=== PATIENT | female | born 1985 | race Caucasian/White ===

== ENCOUNTER 2017-07-18 13:10 | Emergency (ER) | payer MEDICAID ==
--- NOTE | 2017-07-18 13:50 | EDM.PDOC ---
Scribed by Lois Choudhary 07/18/17 [id number] for Shen Hall MD ED HPI GENERAL MEDICAL PROBLEM - General Chief Complaint: Respiratory Problem Stated Complaint: SICK, EXPOSES TO INFLU A Time Seen by Provider: 07/18/17 13:32 Source of Information: Reports: Patient, RN, RN Notes Reviewed History Limitations: Reports: No Limitations - History of Present Illness INITIAL COMMENTS - FREE TEXT/NARRATIVE: Pt with onset of fever, chills, gen. body aches, headache, mild dry cough, and clear runny nose. Pt's daughter just tested positive for Influenza A and has the same symptoms. Onset: Sudden Onset Date: 07/17/17 Duration: Constant Location: Reports: Generalized Quality: Reports: Ache Severity: Moderate Improves with: Reports: None Worsens with: Reports: None Context: Reports: Sick Contact Associated Symptoms: Reports: No Other Symptoms Treatments [employer] PILOT: Reports: Acetaminophen Head Pain Score (Numeric/FACES): 4 - Related Data Allergies Allergy/AdvReac Type Severity Reaction Status Date / Time sulfamethoxazole Allergy Rash Verified 07/18/17 13:24 [From Bactrim] trimethoprim [From Bactrim] Allergy Rash Verified 07/18/17 13:24 Home Meds: Home Meds . 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 Musculoskeletal History: Reports: None Neurological History: Reports: None Psychiatric History: Reports: None, PTSD Endocrine/Metabolic History: Reports: None Hematologic History: Reports: None Immunologic History: Reports: None Oncologic (Cancer) History: Reports: None Dermatologic History: Reports: None - Infectious Disease History Infectious Disease History: Reports: Chicken Pox - Past Surgical History Head Surgeries/Procedures: Reports: None Other Musculoskeletal Surgeries/Procedures:: rotater cuff Social & Family History - Family History Family Medical History: Noncontributory - Tobacco Use Smoking Status *Q: Current Every Day Smoker Years of Tobacco use: 5 Packs/Tins Daily: 0.5 Second Hand Smoke Exposure: No - Caffeine Use Caffeine Use: Reports: Soda - Recreational Drug Use Recreational Drug Use: No - Living Situation & Occupation Living situation: Reports: with Family Occupation: Employed ED ROS GENERAL - Review of Systems Review Of Systems: ROS reveals no pertinent complaints other than HPI. ED EXAM, GENERAL - Physical Exam Exam: See Below Exam Limited By: No Limitations General Appearance: Alert, WD/WN, No Apparent Distress Eye Exam: Bilateral Eye: Normal Inspection Ears: Normal External Exam, Normal Canal, Hearing Grossly Normal, Normal TMs Nose: No Blood, Nasal Drainage (mild clear) Throat/Mouth: Normal Inspection, Normal Lips, Normal Teeth, Normal Gums, Normal Oropharynx, Normal Voice, No Airway Compromise Head: Atraumatic, Normocephalic Neck: Normal Inspection, Supple, Non-Tender, Full Range of Motion. No: Lymphadenopathy (L), Lymphadenopathy (R) Respiratory/Chest: No Respiratory Distress, Lungs Clear, Normal Breath Sounds, No Accessory Muscle Use, Chest Non-Tender, Other (occ. dry cough) Cardiovascular: Regular Rate, Rhythm GI/Abdominal: Normal Bowel Sounds, Soft, Non-Tender Extremities: Normal Inspection Neurological: Alert, Oriented, Normal Gait, No Motor/Sensory Deficits Psychiatric: Normal Mood Skin Exam: Warm, Dry, Intact, Normal Color, No Rash Course - Vital Signs Last Recorded V/S: Last Vital Signs Temp 37.2 C 07/18/17 13:18 Pulse 95 07/18/17 13:18 Resp 16 07/18/17 13:18 BP 106/50 L 07/18/17 13:18 Pulse Ox 99 07/18/17 13:18 Departure - Departure Time of Disposition: 13:35 Disposition: Home, Self-Care 01 Condition: Good Clinical Impression: Influenza - Discharge Information Instructions: Influenza, Adult, [id number] Forms: ED Department Discharge Additional Instructions: RX: Tamiflu 75mg. Drink plenty of fluids. Tylenol and Ibuprofen as needed for fevers. I have read and agree with the documentation that has been completed regarding this visit. By signing this record, I attest that the documentation was completed in my physical presence and is an accurate record of the encounter.
== END 2017-07-18 13:53 | disposition home or self-care (01) ==
LOC: DL.ED 13:10
DX: J11.1 Influenza due to unidentified influenza virus with other respiratory manifestations (principal); F17.210 Nicotine dependence, cigarettes, uncomplicated; Z88.2 Allergy status to sulfonamides; Z88.1 Allergy status to other antibiotic agents
CPT/HCPCS: 99283

== ENCOUNTER 2017-08-19 17:08 | Emergency (ER) | payer MEDICAID | END 2017-08-19 17:56 | disposition left against medical advice (07) | LOC: DL.ED 17:08 | DX: Z53.21 Procedure and treatment not carried out due to patient leaving prior to being seen by health care provider (principal) ==

== ENCOUNTER 2018-09-24 09:21 | Emergency (ER) | payer MEDICAID ==
--- NOTE | 2018-09-24 10:53 | EDM.PDOC ---
Scribed by Lois Choudhary 09/24/18 [id number] for Stefany Araya NP ED HPI GENERAL MEDICAL PROBLEM - General Chief Complaint: ENT Problem Stated Complaint: SWOLLEN NECK [id number] Time Seen by Provider: 09/24/18 10:15 Source of Information: Reports: Patient, RN, RN Notes Reviewed History Limitations: Reports: No Limitations - History of Present Illness INITIAL COMMENTS - FREE TEXT/NARRATIVE: Patient presents to ER with complaint of swollen lymph node on left side of neck. 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 She states she fells that two are related. Denies sore throat, dental pain, nausea, vomiting or diarrhea. She admits to constant low grade fever--not new for her. 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 Rates her joiont pain 09/19. Onset: Gradual Duration: Constant Location: Reports: Other (lymph node) Quality: Reports: Ache Severity: Mild Improves with: Reports: None Worsens with: Reports: None Associated Symptoms: Reports: No Other Symptoms Generalized Pain Score (Numeric/FACES): 6 - Related Data Allergies Allergy/AdvReac Type Severity Reaction Status Date / Time sulfamethoxazole Allergy Rash Verified 09/24/18 09:36 [From Bactrim] trimethoprim [From Bactrim] Allergy Rash Verified 09/24/18 09:36 Home Meds: Home Meds Hydroxychloroquine [Plaquenil] 200 mg PO DAILY 09/24/18 [History] Past Medical History HEENT History: Reports: None Cardiovascular History: Reports: None Respiratory History: Reports: None Gastrointestinal History: Reports: None Genitourinary History: Reports: None 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 Musculoskeletal History: Reports: None Neurological History: Reports: None Psychiatric History: Reports: None, PTSD Endocrine/Metabolic History: Reports: None Hematologic History: Reports: None Other Hematologic History: lupus Immunologic History: Reports: None Oncologic (Cancer) History: Reports: None Dermatologic History: Reports: None - Infectious Disease History Infectious Disease History: Reports: Chicken Pox - Past Surgical History Head Surgeries/Procedures: Reports: None Other Musculoskeletal Surgeries/Procedures:: rotater cuff Social & Family History - Family History Family Medical History: Noncontributory - Tobacco Use Smoking Status *Q: Current Every Day Smoker Years of Tobacco use: 3 Packs/Tins Daily: 0.5 Second Hand Smoke Exposure: No - Caffeine Use Caffeine Use: Reports: Soda - Recreational Drug Use Recreational Drug Use: No - Living Situation & Occupation Living situation: Reports: with Family Occupation: Employed ED ROS ENT - Review of Systems Review Of Systems: ROS reveals no pertinent complaints other than HPI. ED EXAM, ENT - Physical Exam Exam: See Below Exam Limited By: No Limitations General Appearance: Alert, WD/WN, No Apparent Distress Eye Exam: Bilateral Eye: EOMI, Normal Inspection, PERRL Ears: Normal External Exam, Normal Canal, Hearing Grossly Normal, Normal TMs Nose: Normal Inspection, Normal Mucousa, No Blood Mouth/Throat: Normal Inspection, Normal Gums, Normal Lips, Normal Oropharynx, Normal Teeth Head: Atraumatic, Normocephalic Neck: Other (+3 left anterior cervical) Respiratory/Chest: No Respiratory Distress, Lungs Clear, Normal Breath Sounds, No Accessory Muscle Use, Chest Non-Tender Cardiovascular: Normal Peripheral Pulses, Regular Rate, Rhythm, No Edema, No Gallop, No JVD, No Murmur, No Rub GI/Abdominal: Normal Bowel Sounds, Soft, Non-Tender, No Organomegaly, No Distention, No Abnormal Bruit, No Mass (Female) Exam: Deferred Rectal (Female) Exam: Deferred Back: Normal Inspection, Full Range of Motion Extremities: Normal Inspection, Normal Range of Motion, Non-Tender, No Pedal Edema, Normal Capillary Refill Neurological: Alert, Oriented, CN II-XII Intact, Normal Cognition, Normal Gait, Normal Reflexes, No Motor/Sensory Deficits Psychiatric: Normal Affect, Normal Mood Skin: Other (very sensitivie to sunlight, etc. Discoid lupus. ) Lymphatic: Other (left anterior cervical +3.) Course - Vital Signs Last Recorded V/S: Last Vital Signs Temp 98.2 F 09/24/18 09:29 Pulse 89 09/24/18 09:29 Resp 16 09/24/18 09:29 BP 117/71 09/24/18 09:29 Pulse Ox 100 09/24/18 09:29 Departure - Departure Time of Disposition: 10:23 Disposition: Home, Self-Care 01 Condition: Fair Clinical Impression: Lymphadenopathy of left cervical region, Discoid lupus - Discharge Information *PRESCRIPTION DRUG MONITORING PROGRAM REVIEWED*: No *COPY OF PRESCRIPTION DRUG MONITORING REPORT IN PATIENT GAMA: No Instructions: Lymphadenopathy Forms: ED Department Discharge Additional Instructions: Continue to take ibuprofen as directed RX: Amoxicillin Follow up with your primary care facility if no improvement I have read and agree with the documentation that has been completed regarding this visit. By signing this record, I attest that the documentation was completed in my physical presence and is an accurate record of the encounter.
== END 2018-09-24 10:27 | disposition home or self-care (01) ==
LOC: DL.ED 09:21
DX: R59.0 Localized enlarged lymph nodes (principal); L93.0 Discoid lupus erythematosus; Z88.2 Allergy status to sulfonamides; Z79.899 Other long term (current) drug therapy
CPT/HCPCS: 99283

== ENCOUNTER 2018-12-02 20:15 | Emergency (ER) | payer MEDICAID ==
[2018-12-02] MEDS ORDERED: Gentamicin 0.3% Ophth Soln 5 ML Bottle EYELF ONE (20:16)
[2018-12-02] MEDS ORDERED: Gentamicin 0.3% Ophth Soln 5 ML Bottle ONE (20:31)
--- NOTE | 2018-12-02 20:33 | EDM.PDOC ---
ED HPI GENERAL MEDICAL PROBLEM - General Chief Complaint: Eye Problems Stated Complaint: SOMETHING WRONG WITH EYE Time Seen by Provider: 12/02/18 20:23 Source of Information: Reports: Patient History Limitations: Reports: No Limitations - History of Present Illness INITIAL COMMENTS - FREE TEXT/NARRATIVE: states left eye turned red last night and got concerned since taking plaquenil for discoid lupus and needs regular eye exam. thought this is it. denies blurred vision. denies itch/discharge. 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 Musculoskeletal History: Reports: None Neurological History: Reports: None Psychiatric History: Reports: None, PTSD Endocrine/Metabolic History: Reports: None Hematologic History: Reports: None Other Hematologic History: lupus Immunologic History: Reports: None Oncologic (Cancer) History: Reports: None Dermatologic History: Reports: None - Infectious Disease History Infectious Disease History: Reports: Chicken Pox - Past Surgical History Head Surgeries/Procedures: Reports: None Other Musculoskeletal Surgeries/Procedures:: rotater cuff Social & Family History - Family History Family Medical History: Noncontributory - Caffeine Use Caffeine Use: Reports: Soda - Living Situation & Occupation Living situation: Reports: with Family Occupation: Employed ED ROS GENERAL - Review of Systems Review Of Systems: ROS reveals no pertinent complaints other than HPI. ED EXAM GENERAL W FULL EYE - Physical Exam Exam: See Below Exam Limited By: No Limitations General Appearance: Alert, WD/WN, No Apparent Distress, Anxious Eye Exam: Left Eye: Conjunctival Injection (medial [place], no discharge), Bilateral Eye: PERRL (pupils ER @ 4mm) Eyelids: Bilateral: Normal Appearance Conjunctiva & Sclera: Left: Injected (medial [place]) Cornea Exam: Bilateral: Normal Appearance Extraocular Movements: Bilateral: Intact Pupillary Size: Bilateral: 4 mm Anterior Chamber: Bilateral: Normal Appearance Ears: Hearing Grossly Normal Throat/Mouth: Normal Voice, No Airway Compromise Head: Atraumatic Neck: Non-Tender, Full Range of Motion Respiratory/Chest: No Respiratory Distress Cardiovascular: Regular Rate, Rhythm GI/Abdominal: Soft, Non-Tender Neurological: Alert, Oriented, Normal Cognition, Normal Gait, No Motor/Sensory Deficits Psychiatric: Anxious Skin Exam: Warm, Dry, Normal Color Lymphatic: No Adenopathy Course - Vital Signs Last Recorded V/S: Last Vital Signs Temp 37.5 C 12/02/18 20:24 Pulse 105 H 12/02/18 20:24 Resp 18 12/02/18 20:24 BP 122/54 L 12/02/18 20:24 Pulse Ox 100 12/02/18 20:24 Departure - Departure Time of Disposition: 20:33 Disposition: Home, Self-Care 01 Condition: Good Clinical Impression: Conjunctivitis Qualifiers: Conjunctivitis type: acute Acute conjunctivitis type: unspecified Laterality: left Qualified Code(s): H10.32 - Unspecified acute conjunctivitis, left eye - Discharge Information Additional Instructions: 1) see EYE DOCTOR WEDNESDAY if still has problem 2) return if there is any change or concern rx togo; gentamycin eye drops 2 drops qid x 5 days
== END 2018-12-02 20:42 | disposition home or self-care (01) ==
LOC: DL.ED 20:15
DX: H10.32 Unspecified acute conjunctivitis, left eye (principal); Z88.1 Allergy status to other antibiotic agents
CPT/HCPCS: 99282; A9270-GY

== ENCOUNTER 2019-03-12 11:50 | Emergency (ER) | payer MEDICAID ==
[2019-03-12] MEDS ORDERED: Sodium Chloride 0.9% 1,000 ML IV ONE ×2 (12:12→13:19)
[2019-03-12] MEDS ORDERED: Ondansetron 4 MG/2 ML SDV IV ONE (12:12)
[2019-03-12 12:37] LABS: ANION GAP 12.1; CHLORIDE,CL 107 mmol/L (101-111); SODIUM,NA 136 mmol/L (135-145)
--- NOTE | 2019-03-12 14:02 | EDM.PDOC ---
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 She is nauseated and has been vomiting with a small amount of blood. She has taken no Reglan or Phenergan. Last meal she kept down which was yesterday A.M. Her last Zofran yesterday afternoon. She has had no diarrhea. She was suppose to fill Zofran script on Wednesday, but missed pharmacy hours. Onset: Gradual Duration: Constant Location: Reports: Abdomen Quality: Reports: Ache Severity: Moderate Improves with: Reports: None Worsens with: Reports: None Associated Symptoms: Reports: No Other Symptoms Throat Pain Score (Numeric/FACES): 4 - Related Data Allergies Allergy/AdvReac Type Severity Reaction Status Date / Time sulfamethoxazole Allergy Rash Verified 03/12/19 12:04 [From Bactrim] trimethoprim [From Bactrim] Allergy Rash Verified 03/12/19 12:04 Home Meds: Home Meds Hydroxychloroquine [Plaquenil] 200 mg PO BID 09/24/18 [History] Mv-Mn/Iron/FA/Herbal/Digestive [ One Tablet] 1 tab PO DAILY 03/12/19 [ History] Ondansetron [Zofran ODT] 4 mg PO Q6HR 03/12/19 [History] Past Medical History HEENT History: Reports: None Cardiovascular History: Reports: None Respiratory History: Reports: None Gastrointestinal History: Reports: None Genitourinary History: Reports: None 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: Reports: Musculoskeletal History: Reports: None Neurological History: Reports: None Psychiatric History: Reports: Anxiety, Depression, PTSD Endocrine/Metabolic History: Reports: None Hematologic History: Reports: Other (See Below) Other Hematologic History: lupus Immunologic History: Reports: None Oncologic (Cancer) History: Reports: None Dermatologic History: Reports: None - Infectious Disease History Infectious Disease History: Reports: Chicken Pox - Past Surgical History Head Surgeries/Procedures: Reports: None HEENT Surgical History: Reports: Adenoidectomy, Tonsillectomy Other Musculoskeletal Surgeries/Procedures:: rotater cuff Social & Family History - Family History Family Medical History: Noncontributory - Tobacco Use Smoking Status *Q: Current Every Day Smoker Years of Tobacco use: 5 Packs/Tins Daily: 0.2 Used Tobacco, but Quit: No - Caffeine Use Caffeine Use: Reports: Soda - Recreational Drug Use Recreational Drug Use: No - Living Situation & Occupation Living situation: Reports: with Family Occupation: Employed ED ROS GENERAL - Review of Systems Review Of Systems: Comprehensive ROS is negative, except as noted in HPI. ED EXAM, GI/ABD - Physical Exam Exam: See Below Exam Limited By: No Limitations General Appearance: Alert, WD/WN, No Apparent Distress Eyes: Bilateral: Normal Appearance Ears: Normal External Exam, Normal Canal, Hearing Grossly Normal, Normal TMs Nose: Normal Inspection, Normal Mucosa, No Blood Throat/Mouth: Normal Inspection, Normal Lips, Normal Teeth, Normal Gums, Normal Oropharynx, Normal Voice, No Airway Compromise Head: Atraumatic, Normocephalic Neck: Normal Inspection, Supple, Non-Tender, Full Range of Motion Respiratory/Chest: No Respiratory Distress, Lungs Clear, Normal Breath Sounds, No Accessory Muscle Use, Chest Non-Tender Cardiovascular: Normal Peripheral Pulses, Regular Rate, Rhythm, No Edema, No Gallop, No JVD, No Murmur, No Rub GI/Abdominal Exam: Other (diffuse tenderness(relateds tovomiting).) (Female) Exam: Deferred Rectal (Female) Exam: Deferred Back Exam: Normal Inspection, Full Range of Motion, NT Extremities: Normal Inspection, Normal Range of Motion, Non-Tender, Normal Capillary Refill, No Pedal Edema Neurological: Alert, Oriented, CN II-XII Intact, Normal Cognition, Normal Gait, Normal Reflexes, No Motor/Sensory Deficits Psychiatric: Normal Affect, Normal Mood Skin Exam: Warm, Dry, Intact, Normal Color, No Rash Lymphatic: No Adenopathy Course - Vital Signs Last Recorded V/S: Last Vital Signs Temp 37.2 C 03/12/19 11:55 Pulse 94 03/12/19 11:55 Resp 16 03/12/19 11:55 BP 118/64 03/12/19 11:55 Pulse Ox 100 03/12/19 11:55 - Orders/Labs/Meds Orders: Active Orders 24 hr Category Date Time Status Sodium Chloride 0.9% [Normal Saline] 1,000 ml Med 03/12/19 13:19 Active IV .BOLUS Medication Orders Sodium Chloride (Normal Saline) 1,000 mls @ 999 mls/hr IV .BOLUS ONE Stop: 03/12/19 14:19 Last Admin: 03/12/19 13:22 Dose: 999 mls/hr Labs: Laboratory Tests 03/12/19 03/12/19 Range/Units 12:00 12:00 WBC 9.5 (5.0-10.0) 10^3/uL RBC 3.86 L (4.2-5.4) 10^6/uL Hgb 12.1 (12.0-16.0) g/dL Hct 34.6 L (37.0-47.0) % MCV 89.6 (80-100) fL MCH 31.3 (27.0-34.0) pg MCHC 35.0 (33.0-35.0) g/dL Plt Count 187 (150-450) 10^3/uL Neut % (Auto) 73.3 (42.2-75.2) % Lymph % (Auto) 16.4 L (20.5-50.1) % [place] % (Auto) 8.9 H (2-8) % Eos % (Auto) 1.2 (1.0-3.0) % Baso % (Auto) 0.2 (0.0-1.0) % Sodium 136 (135-145) mmol/L Potassium 3.1 L (3.6-5.0) mmol/L Chloride 107 (101-111) mmol/L Carbon Dioxide 20.0 L (21.0-31.0) mmol/L Anion Gap 12.1 BUN 11 (7-18) mg/dL Creatinine 0.4 L (0.6-1.3) mg/dL Est Cr Clr Drug Dosing 174.36 mL/min Estimated GFR (MDRD) > 60 BUN/Creatinine Ratio 27.50 Glucose 88 (74-105) mg/dL Calcium 8.8 (8.4-10.2) mg/dl Total Bilirubin 0.3 (0.2-1.0) mg/dL AST 15 (10-42) IU/L ALT 9 L (10-60) IU/L Alkaline Phosphatase 35 L (42-121) IU/L Total Protein 6.6 L (6.7-8.2) g/dl Albumin 3.3 (3.2-5.5) g/dl Globulin 3.3 Albumin/Globulin Ratio 1.00 Meds: Medications Generic Name Dose Route Start Last Admin Trade Name Freq PRN Reason Stop Dose Admin Sodium Chloride 1,000 mls @ 999 mls/hr 03/12/19 13:19 03/12/19 13:22 Normal Saline IV 03/12/19 14:19 999 mls/hr .BOLUS ONE Administration Discontinued Medications Generic Name Dose Route Start Last Admin Trade Name Freq PRN Reason Stop Dose Admin Sodium Chloride 1,000 mls @ 999 mls/hr 03/12/19 12:12 03/12/19 12:26 Normal Saline IV 03/12/19 13:12 999 mls/hr .BOLUS ONE Administration Ondansetron HCl 4 mg 03/12/19 12:12 03/12/19 12:26 Zofran IV 03/12/19 12:13 4 mg ONETIME ONE Administration Departure - Departure Time of Disposition: 13:58 Disposition: Home, Self-Care 01 Condition: Fair Clinical Impression: Nausea and vomiting during prior to 22 weeks gestation - Discharge Information *PRESCRIPTION DRUG MONITORING PROGRAM REVIEWED*: Not Applicable *COPY OF PRESCRIPTION DRUG MONITORING REPORT IN PATIENT GAMA: Not Applicable Instructions: Nausea and Vomiting, Adult, [id number] Forms: ED Department Discharge Care Plan Goals: The patient was advised of the examination results. The patient was given 2 liters of IV fluids and a dose of IV Zofran. The patient was discharged with a script for Zofran (4 mg) #10 to take 1 by mouth every 6 hours as needed for nausea. If the patient has any additional symptoms or concerns, the patient should either return to the emergency department or visit her primary care facility. - My Orders Last 24 Hours: My Active Orders 03/12/19 13:19 Sodium Chloride 0.9% [Normal Saline] 1,000 ml IV .BOLUS - Assessment/Plan Last 24 Hours: My Active Orders 03/12/19 13:19 Sodium Chloride 0.9% [Normal Saline] 1,000 ml IV .BOLUS I have read and agree with the documentation that has been completed regarding this visit. By signing this record, I attest that the documentation was completed in my physical presence and is an accurate record of the encounter.
== END 2019-03-12 14:09 | disposition home or self-care (01) ==
LOC: DL.ED 11:50
DX: O21.2 Late vomiting of pregnancy (principal); O99.332 Smoking (tobacco) complicating pregnancy, second trimester; F17.210 Nicotine dependence, cigarettes, uncomplicated; Z3A.22 22 weeks gestation of pregnancy; Z88.2 Allergy status to sulfonamides
CPT/HCPCS: 36415; 80053; 85025; 96361; 96374; 99283; J2405; J7030

== ENCOUNTER 2019-03-23 00:42 | Emergency (ER) | payer MEDICAID ==
--- NOTE | 2019-03-23 01:36 | EDM.PDOC ---
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 Patient states EDC is 08/12/19. Patient states this is her seventh , she has 2 living children, and has had 4 spontaneous abortions. 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 She states this evening when she was at work about 11:00, she felt a large gush. She states this was bright red/pink fluid. Since that time, the patient has had 2 very small drops of pink fluid on a pad. Patient admits to having intercourse this afternoon. States she is still feeling movement. Patient denies any pain at this time. Patient also denies any sexually transmitted diseases, urinary symptoms. Onset: Today, Sudden - Related Data Allergies Allergy/AdvReac Type Severity Reaction Status Date / Time sulfamethoxazole Allergy Rash Verified 03/23/19 01:09 [From Bactrim] trimethoprim [From Bactrim] Allergy Rash Verified 03/23/19 01:09 Home Meds: Home Meds Hydroxychloroquine [Plaquenil] 200 mg PO BID 09/24/18 [History] Mv-Mn/Iron/FA/Herbal/Digestive [ One Tablet] 1 tab PO DAILY 03/12/19 [ History] Ondansetron [Zofran ODT] 4 mg PO Q6HR 03/12/19 [History] Past Medical History HEENT History: Reports: None Cardiovascular History: Reports: None Respiratory History: Reports: None Gastrointestinal History: Reports: None Genitourinary History: Reports: None 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 History: Reports: Musculoskeletal History: Reports: None Neurological History: Reports: None Psychiatric History: Reports: Anxiety, Depression, PTSD Endocrine/Metabolic History: Reports: None Hematologic History: Reports: Other (See Below) Other Hematologic History: lupus Immunologic History: Reports: None Oncologic (Cancer) History: Reports: None Dermatologic History: Reports: None - Infectious Disease History Infectious Disease History: Reports: Chicken Pox - Past Surgical History Head Surgeries/Procedures: Reports: None HEENT Surgical History: Reports: Adenoidectomy, Tonsillectomy Other Musculoskeletal Surgeries/Procedures:: rotater cuff Social & Family History - Family History Family Medical History: Noncontributory - Tobacco Use Smoking Status *Q: Current Every Day Smoker Years of Tobacco use: 15 Packs/Tins Daily: 1 - Caffeine Use Caffeine Use: Reports: Soda - Recreational Drug Use Recreational Drug Use: No - Living Situation & Occupation Living situation: Reports: with Family Occupation: Employed ED ROS GENERAL - Review of Systems Review Of Systems: Comprehensive ROS is negative, except as noted in HPI. ED EXAM - Physical Exam Exam: See Below Exam Limited By: No Limitations General Appearance: Alert, WD/WN, No Apparent Distress Eye Exam: Bilateral Eye: EOMI, Normal Inspection Ears: Normal External Exam, Hearing Grossly Normal Nose: Normal Inspection, Normal Mucosa, No Blood Throat/Mouth: Normal Inspection, Normal Lips, Normal Teeth, Normal Voice, No Airway Compromise Head: Atraumatic, Normocephalic Neck: Normal Inspection, Supple, Non-Tender, Full Range of Motion Respiratory/Chest: No Respiratory Distress, Lungs Clear, Normal Breath Sounds, No Accessory Muscle Use, Chest Non-Tender Cardiovascular: Normal Peripheral Pulses, Regular Rate, Rhythm, No Edema, No Gallop, No JVD, No Murmur, No Rub GI/Abdominal Exam: Normal Bowel Sounds, Soft, Non-Tender Rectal Exam: Deferred (Female) Exam: Normal External Exam, Cervical Dilatation (unable to assess os as cervix is tilted downward, medium speculum utilized), Cervical Discharge ( small amount of mucous/pink/with small amount of dark red/brown mucous.), Uterine Tenderness, Vaginal Discharge (small amount pink mucous) Heart Tones: Present Heart Tones per Min: 145 Movement: Active Back Exam: Normal Inspection, Full Range of Motion, NT Extremities: Normal Inspection, Normal Range of Motion, Non-Tender, Normal Capillary Refill, No Pedal Edema Neurological: Alert, Oriented, CN II-XII Intact, Normal Cognition, Normal Gait, Normal Reflexes, No Motor/Sensory Deficits Psychiatric: Normal Affect, Normal Mood, Anxious Skin Exam: Warm, Dry, Intact, Normal Color, No Rash Lymphatic: No Adenopathy Course - Vital Signs Last Recorded V/S: Last Vital Signs Temp 97.3 F 03/23/19 01:03 Pulse 88 03/23/19 01:03 Resp 16 03/23/19 01:03 BP 114/51 L 03/23/19 01:03 Pulse Ox 100 03/23/19 01:03 - Orders/Labs/Meds Orders: Active Orders 24 hr Category Date Time Status CHLAMYDIA AND GONORRHEA BY TMA Stat Lab 03/23/19 01:13 Received Labs: Laboratory Tests 03/23/19 Range/Units 01:13 Urine Color Yellow (YELLOW) Urine Appearance Slightly cloudy (CLEAR) Urine pH 7.0 (5.0-9.0) Ur Specific [place] >= 1.030 (1.005-1.030) Urine Protein Negative (NEGATIVE) Urine Glucose (UA) Negative (NEGATIVE) Urine Ketones Trace H (NEGATIVE) Urine Occult Blood Moderate H (NEGATIVE) Urine Nitrite Negative (NEGATIVE) Urine Bilirubin Negative (NEGATIVE) Urine Urobilinogen 0.2 (0.2-1.0) mg/dL Ur Leukocyte Esterase Negative (NEGATIVE) Urine RBC 0-5 /HPF Urine WBC 5-10 H (0-5/HPF) /HPF Ur Epithelial Cells Few (NOT SEEN) /HPF Amorphous Sediment Few (NOT SEEN) /HPF Urine Bacteria Few (0-FEW/HPF) /HPF Urine Mucus Moderate H (NOT SEEN) /LPF Urine Other See note Meds: Medications Discontinued Medications Generic Name Dose Route Start Last Admin Trade Name Freq PRN Reason Stop Dose Admin Metronidazole 500 mg 03/23/19 02:02 Metronidazole PO 03/23/19 02:03 ONETIME ONE - Re-Assessments/Exams Free Text/Narrative Re-Assessment/Exam: 03/23/19 01:52 discussed patient case with Dr. Foley. Dr. Foley feels the patient may be sent home on bedrest until she visits with her 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 in the morning. Patient states she feels comfortable going home on bedrest tonight. Patient encouraged to call or go to [place] to see her 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 if any further problems. Departure - Departure Time of Disposition: 02:09 Disposition: Home, Self-Care 01 Condition: Fair Clinical Impression: Threatened , Vaginal discharge, Bacterial vaginosis - Discharge Information *PRESCRIPTION DRUG MONITORING PROGRAM REVIEWED*: No *COPY OF PRESCRIPTION DRUG MONITORING REPORT IN PATIENT GAMA: No Instructions: Bacterial Vaginosis, [id number], Threatened Miscarriage, Easy- to-Read, Vaginal Bleeding During , Second Trimester, [id number] Forms: ED Department Discharge Additional Instructions: Rx: Metronidazole 500 mg orally twice daily for 7 days Home tonight with bedrest Abstain from sexual intercourse until cleared by your 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 Call Dr. Alexander's office right away in the morning Sepsis Event Note - Evaluation Sepsis Screening Result: No Definite Risk - Focused Exam Vital Signs: Vital Signs Temp Pulse Resp BP Pulse Ox 03/23/19 01:03 97.3 F 88 16 114/51 L 100 Date Exam was Performed: 03/23/19 Time Exam was Performed: 02:09 - My Orders Last 24 Hours: My Active Orders 03/23/19 01:13 CHLAMYDIA AND GONORRHEA BY TMA Stat - Assessment/Plan Last 24 Hours: My Active Orders 03/23/19 01:13 CHLAMYDIA AND GONORRHEA BY TMA Stat
[2019-03-23] MEDS ORDERED: metroNIDAZOLE 250 MG Tab PO ONE (02:02)
== END 2019-03-23 02:12 | disposition home or self-care (01) ==
LOC: DL.ED 00:42
DX: O20.0 Threatened abortion (principal); O99.332 Smoking (tobacco) complicating pregnancy, second trimester; Z88.1 Allergy status to other antibiotic agents
CPT/HCPCS: 81001; 87210; 87491; 87591; 99284; A9270

== ENCOUNTER 2019-04-07 12:38 | Emergency (ER) | payer MEDICAID ==
--- NOTE | 2019-04-07 15:56 | EDM.PDOC ---
ED HPI GENERAL MEDICAL PROBLEM - General Chief Complaint: Respiratory Problem Stated Complaint: COUGH,SINUS Time Seen by Provider: 04/07/19 15:40 Source of Information: Reports: Patient, Family, RN, RN Notes Reviewed History Limitations: Reports: No Limitations - History of Present Illness INITIAL COMMENTS - FREE TEXT/NARRATIVE: patient presents to ER with complaint of fever, body aches, cough, weakness. Patient is about 23 weeks . Complains of ore throat. States symptoms began 4 days ago. 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 Onset: Gradual Onset Date: 04/02/19 - Related Data Allergies Allergy/AdvReac Type Severity Reaction Status Date / Time sulfamethoxazole Allergy Rash Verified 03/23/19 01:09 [From Bactrim] trimethoprim [From Bactrim] Allergy Rash Verified 03/23/19 01:09 Home Meds: Home Meds Hydroxychloroquine [Plaquenil] 200 mg PO BID 09/24/18 [History] Mv-Mn/Iron/FA/Herbal/Digestive [ One Tablet] 1 tab PO DAILY 03/12/19 [ History] Ondansetron [Zofran ODT] 4 mg PO Q6HR 03/12/19 [History] Past Medical History HEENT History: Reports: None Cardiovascular History: Reports: None Respiratory History: Reports: None Gastrointestinal History: Reports: None Genitourinary History: Reports: None 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: Musculoskeletal History: Reports: None Neurological History: Reports: None Psychiatric History: Reports: Anxiety, Depression, PTSD Endocrine/Metabolic History: Reports: None Hematologic History: Reports: Other (See Below) Other Hematologic History: lupus Immunologic History: Reports: None Oncologic (Cancer) History: Reports: None Dermatologic History: Reports: None - Infectious Disease History Infectious Disease History: Reports: Chicken Pox - Past Surgical History Head Surgeries/Procedures: Reports: None HEENT Surgical History: Reports: Adenoidectomy, Tonsillectomy Other Musculoskeletal Surgeries/Procedures:: rotater cuff Social & Family History - Family History Family Medical History: Noncontributory - Caffeine Use Caffeine Use: Reports: Soda - Living Situation & Occupation Living situation: Reports: with Family Occupation: Employed ED ROS GENERAL - Review of Systems Review Of Systems: Comprehensive ROS is negative, except as noted in HPI. ED EXAM, GENERAL - Physical Exam Exam: See Below Exam Limited By: No Limitations General Appearance: Alert, WD/WN, No Apparent Distress Eye Exam: Bilateral Eye: EOMI, Normal Inspection Ears: Normal External Exam, Hearing Grossly Normal Nose: Normal Inspection, Normal Mucosa, No Blood Throat/Mouth: Normal Inspection, Normal Lips, Normal Teeth, Normal Gums, Normal Oropharynx, Normal Voice, No Airway Compromise Head: Atraumatic, Normocephalic Neck: Normal Inspection, Supple, Non-Tender, Full Range of Motion Respiratory/Chest: No Respiratory Distress, Lungs Clear, Normal Breath Sounds, No Accessory Muscle Use, Chest Non-Tender Cardiovascular: Normal Peripheral Pulses, Regular Rate, Rhythm, No Edema, No Gallop, No JVD, No Murmur, No Rub Peripheral Pulses: 2+: Radial (L), Radial (R) GI/Abdominal: Normal Bowel Sounds, Soft, Non-Tender, No Organomegaly, No Distention, No Abnormal Bruit, No Mass (Female) Exam: Deferred Rectal (Female) Exam: Deferred Back Exam: Normal Inspection, Full Range of Motion, NT Extremities: Normal Inspection, Normal Range of Motion, Non-Tender, Normal Capillary Refill, No Pedal Edema Neurological: Alert, Oriented, CN II-XII Intact, Normal Cognition, Normal Gait, Normal Reflexes, No Motor/Sensory Deficits Psychiatric: Normal Affect, Normal Mood Skin Exam: Warm, Dry, Intact, Normal Color, No Rash Lymphatic: No Adenopathy Course - Vital Signs Last Recorded V/S: Last Vital Signs Temp 99.1 F 04/07/19 14:55 Pulse 84 04/07/19 14:55 Resp 20 04/07/19 14:55 BP 108/53 L 04/07/19 14:55 Pulse Ox 100 04/07/19 14:55 - Orders/Labs/Meds Labs: Influenza A: Negative Influenza B: Positive Rapid Strep: Negative Departure - Departure Time of Disposition: 15:54 Disposition: Home, Self-Care 01 Condition: Fair Clinical Impression: Influenza B - Discharge Information *PRESCRIPTION DRUG MONITORING PROGRAM REVIEWED*: No *COPY OF PRESCRIPTION DRUG MONITORING REPORT IN PATIENT GAMA: No Instructions: Influenza, Adult, [id number], Viral Respiratory Infection, Easy -To-Read, Upper Respiratory Infection, Adult, [id number] Referrals: Jaycee Khalil NP [Primary Care Provider] - Forms: ED Department Discharge Additional Instructions: Drink plenty of fluids May use Tylenol as directed for pain/fever Follow up with your primary care facility No work until symptoms resolve Sepsis Event Note - Evaluation Sepsis Screening Result: No Definite Risk - Focused Exam Date Exam was Performed: 04/08/19 Time Exam was Performed: 16:02
== END 2019-04-07 16:20 | disposition home or self-care (01) ==
LOC: DL.ED 12:38
DX: J10.1 Influenza due to other identified influenza virus with other respiratory manifestations (principal); Z88.2 Allergy status to sulfonamides
CPT/HCPCS: 87081; 87430; 87804; 99284

== ENCOUNTER 2021-03-09 13:13 | Emergency (ER) | payer MEDICAID | END 2021-03-09 14:05 | disposition left against medical advice (07) | LOC: DL.ED 13:13 | DX: Z53.21 Procedure and treatment not carried out due to patient leaving prior to being seen by health care provider (principal) ==